=== PATIENT | male | born 1975 | race Caucasian/White ===

== ENCOUNTER 2019-10-23 13:15 | Emergency (ER) | payer SELFPAY ==
[2019-10-23] MEDS ORDERED: Sodium Chloride 0.9% 10 ML Syringe FLUSH PRN (13:50)
[2019-10-23] MEDS ORDERED: Ondansetron 4 MG/2 ML SDV IVPUSH ONE (13:51)
[2019-10-23] MEDS ORDERED: HYDROmorphone 0.5 MG/0.5 ML Syringe IVPUSH ONE (13:51)
[2019-10-23] MEDS ORDERED: Sodium Chloride 0.9% 1,000 ML IV SCH (14:00)
--- NOTE | 2019-10-23 14:39 | EDM.PDOC ---
ED HPI GENERAL MEDICAL PROBLEM - General Chief Complaint: Flank Pain Stated Complaint: BACK AND LOW ABD PAIN HX OF KIDNEY STONES Time Seen by Provider: 10/23/19 13:40 Source of Information: Reports: Patient History Limitations: Reports: No Limitations - History of Present Illness INITIAL COMMENTS - FREE TEXT/NARRATIVE: Patient is a 43-year-old male presenting to the emergency department with complaints of acute onset of left sided flank pain rating down to his abdomen. Symptoms began this morning. Patient does have a history of kidney stones and feels that he likely already passed one this morning. He did not visualize a stone but states he could feel it. He has been using [id number] Aleve as needed for pain. States he took 3 of them this morning and then another 2 prior to coming to the ER. This did improve his pain, however he is still rating it at 6 out of 10. States he felt a little nauseous prior to coming to the ER but has had no vomiting. Denies any fever or chills. Left Flank Pain Score (Numeric/FACES): 6 - Related Data Allergies Allergy/AdvReac Type Severity Reaction Status Date / Time No Known Allergies Allergy Verified 10/23/19 13:37 Home Meds: Home Meds Acetaminophen/HYDROcodone [[place] 325-5 MG] 1 tab PO Q4H PRN #15 tablet 10/23/19 [Rx] Multivitamin [Multivitamins] 1 tab PO DAILY 10/23/19 [History] Omeprazole Magnesium [Prilosec Otc] 20 mg PO DAILY 10/23/19 [History] Ondansetron [Zofran ODT] 4 mg PO Q6H PRN #10 tab.dis 10/23/19 [Rx] Tamsulosin [Tamsulosin 24 Hr] 0.4 mg PO DAILY #10 cap.er 10/23/19 [Rx] Past Medical History Genitourinary History: Reports: Renal Calculus Musculoskeletal History: Reports: Fracture Social & Family History - Family History Family Medical History: Noncontributory - Tobacco Use Smoking Status *Q: Current Every Day Smoker Years of Tobacco use: 20 Packs/Tins Daily: 0.5 - Caffeine Use Caffeine Use: Reports: None - Recreational Drug Use Recreational Drug Use: No ED ROS GENERAL - Review of Systems Review Of Systems: See Below Constitutional: Reports: No Symptoms. Denies: Fever, Chills, Weakness HEENT: Reports: No Symptoms Respiratory: Reports: No Symptoms. Denies: Shortness of Breath, Cough Cardiovascular: Reports: No Symptoms. Denies: Chest Pain Endocrine: Reports: No Symptoms GI/Abdominal: Reports: Abdominal Pain (Left lower quadrant), Nausea. Denies: Diarrhea, Vomiting : Reports: Flank Pain (Left ) Musculoskeletal: Reports: No Symptoms Skin: Reports: No Symptoms Neurological: Reports: No Symptoms Psychiatric: Reports: No Symptoms Hematologic/Lymphatic: Reports: No Symptoms Immunologic: Reports: No Symptoms ED EXAM, RENAL/ - Physical Exam Exam: See Below Exam Limited By: No Limitations General Appearance: Alert, WD/WN, No Apparent Distress Respiratory/Chest: No Respiratory Distress, Lungs Clear, Normal Breath Sounds, No Accessory Muscle Use, Chest Non-Tender Cardiovascular: Normal Peripheral Pulses, Regular Rate, Rhythm, No Edema, No Gallop, No JVD, No Murmur, No Rub GI/Abdominal: Normal Bowel Sounds, Soft, No Organomegaly, No Distention, No Abnormal Bruit, No Mass, Tender (Mild left lower quadrant) Back Exam: Normal Inspection, Full Range of Motion, CVA Tenderness (L). No: CVA Tenderness (R) Neurological: Alert, Oriented, CN II-XII Intact, Normal Cognition, Normal Gait, Normal Reflexes, No Motor/Sensory Deficits Psychiatric: Normal Affect, Normal Mood Skin Exam: Warm, Dry, Intact, Normal Color, No Rash Course - Vital Signs Last Recorded V/S: Last Vital Signs Temp 98.8 F 10/23/19 13:32 Pulse 95 10/23/19 13:32 Resp 18 10/23/19 13:32 BP 141/98 H 10/23/19 13:32 Pulse Ox 95 10/23/19 13:32 - Orders/Labs/Meds Orders: Active Orders 24 hr Category Date Time Status Peripheral IV Care [RC] . DIRECTED Care 10/23/19 13:51 Active Strain Urine [RC] ASDIRECTED Care 10/23/19 16:52 Active Abdomen Pelvis wo Cont [CT] Stat Exams 10/23/19 13:50 Taken Sodium Chloride 0.9% [Normal Saline] 1,000 ml Med 10/23/19 14:00 Active IV ASDIRECTED Sodium Chloride 0.9% [Saline Flush] Med 10/23/19 13:50 Active 10 ml FLUSH ASDIRECTED PRN Peripheral IV Insertion Adult [OM.PC] Stat Oth 10/23/19 13:50 Ordered Medication Orders Sodium Chloride (Normal Saline) 1,000 mls @ 999 mls/hr IV ASDIRECTED RACHEL Last Admin: 10/23/19 15:01 Dose: 999 mls/hr Documented by: HERMMIC Sodium Chloride (Saline Flush) 10 ml FLUSH ASDIRECTED PRN PRN Reason: Keep Vein Open Labs: Laboratory Tests 10/23/19 10/23/19 10/23/19 Range/Units 14:20 14:20 16:13 WBC 14.21 H (4.23-9.07) K/mm3 RBC 4.85 (4.63-6.08) M/mm3 Hgb 14.7 (13.7-17.5) gm/dl Hct 43.4 (40.1-51.0) % MCV 89.5 (79.0-92.2) fl MCH 30.3 (25.7-32.2) pg MCHC 33.9 (32.2-35.5) g/dl RDW Std Deviation 43.5 (35.1-43.9) fL Plt Count 305 (163-337) K/mm3 MPV 10.3 (9.4-12.3) fl Neut % (Auto) 81.0 H (34.0-67.9) % Lymph % (Auto) 12.7 L (21.8-53.1) % [place] % (Auto) 5.7 (5.3-12.2) % Eos % (Auto) 0.2 L (0.8-7.0) Baso % (Auto) 0.1 (0.1-1.2) % Neut # (Auto) 11.51 H (1.78-5.38) K/mm3 Lymph # (Auto) 1.80 (1.32-3.57) K/mm3 [place] # (Auto) 0.81 (0.30-0.82) K/mm3 Eos # (Auto) 0.03 L (0.04-0.54) K/mm3 Baso # (Auto) 0.02 (0.01-0.08) K/mm3 Manual Slide Review Normal smear Sodium 142 (136-145) mEq/L Potassium 4.3 (3.5-5.1) mEq/L Chloride 104 (98-107) mEq/L Carbon Dioxide 24 (21-32) mEq/L Anion Gap 18.3 H (5-15) BUN 15 (7-18) mg/dL Creatinine 1.2 (0.7-1.3) mg/dL Est Cr Clr Drug Dosing 88.02 mL/min Estimated GFR (MDRD) > 60 (>60) mL/min BUN/Creatinine Ratio 12.5 L (14-18) Glucose 86 (74-106) mg/dL Calcium 8.7 (8.5-10.1) mg/dL Total Bilirubin 0.5 (0.2-1.0) mg/dL AST 18 (15-37) U/L ALT 25 (16-63) U/L Alkaline Phosphatase 65 (46-116) U/L Total Protein 7.3 (6.4-8.2) g/dl Albumin 3.9 (3.4-5.0) g/dl Globulin 3.4 gm/dL Albumin/Globulin Ratio 1.2 (1-2) Urine Color Yellow (Yellow) Urine Appearance Clear (Clear) Urine pH 6.5 (5.0-8.0) Ur Specific [place] > or = 1.030 (1.005-1.030) Urine Protein Trace H (Negative) Urine Glucose (UA) Negative (Negative) Urine Ketones 2+ H (Negative) Urine Occult Blood 3+ H (Negative) Urine Nitrite Negative (Negative) Urine Bilirubin Negative (Negative) Urine Urobilinogen 0.2 (0.2-1.0) Ur Leukocyte Esterase Negative (Negative) Urine RBC 50-75 H (0-5) /hpf Urine WBC Not seen (0-5) /hpf Ur Squamous Epith Cells 0-5 (0-5) /hpf Urine Bacteria Rare (FEW) /hpf Urine Mucus Moderate H (FEW) /hpf Meds: Medications Generic Name Dose Route Start Last Admin Trade Name Freq PRN Reason Stop Dose Admin Sodium Chloride 1,000 mls @ 999 mls/hr 10/23/19 14:00 10/23/19 15:01 Normal Saline IV 999 mls/hr ASDIRECTED RACHEL Administration Sodium Chloride 10 ml 10/23/19 13:50 Saline Flush FLUSH ASDIRECTED PRN Keep Vein Open Discontinued Medications Generic Name Dose Route Start Last Admin Trade Name Freq PRN Reason Stop Dose Admin Hydromorphone HCl 0.5 mg 10/23/19 13:51 10/23/19 14:16 Dilaudid IVPUSH 10/23/19 13:52 0.5 mg ONETIME ONE Administration Ondansetron HCl 4 mg 10/23/19 13:51 10/23/19 14:16 Zofran IVPUSH 10/23/19 13:52 4 mg ONETIME ONE Administration Tamsulosin HCl 0.4 mg 10/23/19 16:46 10/23/19 16:55 Flomax PO 10/23/19 16:47 0.4 mg ONETIME ONE Administration - Re-Assessments/Exams Free Text/Narrative Re-Assessment/Exam: 10/23/19 16:00 Hematology was significant for WBC elevated at 14.21, anion gap 18.3. CT of the abdomen pelvis showed a 4 mm obstructing stone at the left UVJ. Patient's pain is much improved with the medications given. We are still waiting on his urinalysis. 10/23/19 16:47 Urinalysis was significant for 2+ ketones, 3+ occult blood, and 50-75 RBCs. There is no signs of infection. He will discharged home with instructions to strain his urine. I will give him a prescription for [place] for pain, Zofran for nausea, and flomax. Discharge instructions as documented. Departure - Departure Time of Disposition: 16:47 Disposition: Home, Self-Care 01 Condition: Good Clinical Impression: Kidney stone on left side - Discharge Information *PRESCRIPTION DRUG MONITORING PROGRAM REVIEWED*: Yes *COPY OF PRESCRIPTION DRUG MONITORING REPORT IN PATIENT CATHERINE: No Prescriptions: Tamsulosin [Tamsulosin 24 Hr] 0.4 mg PO DAILY #10 cap.er Acetaminophen/HYDROcodone [[place] 325-5 MG] 1 tab PO Q4H PRN #15 tablet PRN Reason: Pain Ondansetron [Zofran ODT] 4 mg PO Q6H PRN #10 tab.dis PRN Reason: Nausea/Vomiting Instructions: Kidney Stones, [id number] Referrals: Paddy Gomez MD [Primary Care Provider] - Forms: ED Department Discharge Additional Instructions: You were seen in the ER today for left flank pain radiating down into her left abdomen and groin. Your work-up included blood work, urinalysis, and a CT scan your abdomen pelvis. Results of your work-up did show a 4 mm stone in your left ureter right above the junction of the ureter and bladder. While in the ER, you received a liter of IV fluids, Zofran for nausea, Dilaudid for pain, and flomax to help facilitate passage of the stone A prescription for [place] for pain, Zofran for nausea, and Flomax to help facilitate passage of the stone, has been sent to [facility] [place]. Recommend that you take ibuprofen routinely over the next few days. You have been provided with a urine strainer. Strain your urine each time you go until you are able to see the stone. For pain not relieved by ibuprofen, you may take 1 tab of [place] every 4 hours. Zofran may be used every 6 hours as needed for nausea and vomiting. Flomax to be taken daily starting tomorrow until you pass the stone. If you experience any worsening symptoms, please do not hesitate to return to the emergency department. Sepsis Event Note (ED) - Evaluation Sepsis Screening Result: No Definite Risk - Focused Exam Vital Signs: Vital Signs Temp Pulse Resp BP Pulse Ox 10/23/19 13:32 98.8 F 95 18 141/98 H 95 - My Orders Last 24 Hours: My Active Orders 10/23/19 13:50 Abdomen Pelvis wo Cont [CT] Stat Sodium Chloride 0.9% [Saline Flush] 10 ml FLUSH ASDIRECTED PRN Peripheral IV Insertion Adult [OM.PC] Stat 10/23/19 13:51 Peripheral IV Care [RC] . DIRECTED 10/23/19 14:00 Sodium Chloride 0.9% [Normal Saline] 1,000 ml IV ASDIRECTED 10/23/19 16:52 Strain Urine [RC] ASDIRECTED - Assessment/Plan Last 24 Hours: My Active Orders 10/23/19 13:50 Abdomen Pelvis wo Cont [CT] Stat Sodium Chloride 0.9% [Saline Flush] 10 ml FLUSH ASDIRECTED PRN Peripheral IV Insertion Adult [OM.PC] Stat 10/23/19 13:51 Peripheral IV Care [RC] . DIRECTED 10/23/19 14:00 Sodium Chloride 0.9% [Normal Saline] 1,000 ml IV ASDIRECTED 10/23/19 16:52 Strain Urine [RC] ASDIRECTED
[2019-10-23] MEDS ORDERED: Tamsulosin 0.4 MG Cap.ER PO ONE (16:46)
--- NOTE | 2019-10-25 11:03 | CT ---
CT abdomen and pelvis Technique: Multiple axial sections were obtained from above the dome of the diaphragm inferiorly through the pubic symphysis. Intravenous and oral contrast was not utilized. Study performed as a ureteral stone protocol. Reconstructed coronal and sagittal images were reviewed. Findings: 4.9 mm obstructing stone is noted within the distal left ureter located close to the UVJ. This causes a prominently dilated left ureter and left renal collecting system with mild surrounding inflammatory change also noted around the left kidney. No other ureteral calculi are seen. Nonobstructing calculus is noted within the lower pole of the left kidney measuring about 4.7 mm. Visualized lung bases shows slight atelectasis. Noncontrast appearance of the liver shows no focal parenchymal abnormality. Pseudocyst is noted within the lower spleen measuring 2.6 cm which is believed to be benign. No additional splenic abnormality is appreciated. Adrenal glands show no nodule. Gallbladder contains no calcified gallstones. Pancreas shows no discrete finding. Aorta contains no aneurysm. No retroperitoneal adenopathy is appreciated. No pelvic mass or adenopathy is seen. No free fluid is identified. Appendix is seen which is normal in size. Bone window settings were reviewed. Bony exostosis noted above the right hip with small detached bony density also being noted above the right hip. Findings may relate to previous trauma. Impression: 1. Obstructing 4.9 mm stone within the lower left ureter near the UVJ. 2. Nonobstructing stone measuring 4.7 mm within the lower left kidney. 3. Other findings believed to be incidental as described above. Diagnostic code #3 This report was dictated in MDT I agree with preliminary report from [facility], finalized on 10/23/19, 3:52 PM Central Daylight Time
== END 2019-10-23 17:00 | disposition home or self-care (01) ==
LOC: JD.ED 13:15
DX: N20.2 Calculus of kidney with calculus of ureter (principal); F17.210 Nicotine dependence, cigarettes, uncomplicated; Z79.899 Other long term (current) drug therapy
CPT/HCPCS: 36415; 74176; 80053; 81001; 85025; 96361; 96374; 96375; 99284; A9270; J1170; J2405; J7030; 99283